=== PATIENT | male | born 1960 | race Caucasian/White ===

== ENCOUNTER 2021-05-17 15:13 | Outpatient (CLI) | payer BC, SELFPAY ==
[2021-05-17 18:10] LABS: CRP < 2.90 mg/L (0.0-3.0)
[2021-05-19 17:07] LABS: Endomysial Antibody IgA Negative (Negative)
[2021-05-19 20:14] LABS: Immunoglobulin A 380 mg/dL (61-437); t-Transglutaminase IgA <2 U/mL (0-3)
== END 2021-05-17 23:59 | disposition home or self-care (01) ==
LOC: MTLAB 15:17
PROVIDERS: PCP Family Medicine; Referring Provider Internal Medicine Gastroenterology; Visit Provider Internal Medicine Gastroenterology
DX: R19.7 Diarrhea, unspecified (principal)
CPT/HCPCS: 36415; 82784; 83516; 86140; 86255

== ENCOUNTER 2021-05-18 15:43 | Outpatient (CLI) | payer BC, SELFPAY ==
[2021-05-25 17:08] LABS: Calprotectin, Stool 24 ug/g (0-120)
== END 2021-05-18 23:59 | disposition home or self-care (01) ==
LOC: MTLAB 15:43
PROVIDERS: PCP Family Medicine; Referring Provider Internal Medicine Gastroenterology; Visit Provider Internal Medicine Gastroenterology
DX: R19.7 Diarrhea, unspecified (principal)
CPT/HCPCS: 83993

== ENCOUNTER → 2021-07-27 | Outpatient (CLI) | payer BC, SELFPAY ==
[2021-07-31 16:02] LABS: Fats, Neutral Normal (.); Fats, Total Normal (.)
== END | disposition home or self-care (01) ==
LOC: LABSPEC 13:24
PROVIDERS: PCP Family Medicine; Referring Provider Internal Medicine Gastroenterology; Visit Provider Internal Medicine Gastroenterology
DX: R19.7 Diarrhea, unspecified (principal)
CPT/HCPCS: 82705